=== PATIENT | male | born 1980 | race Caucasian/White ===

== ENCOUNTER 2016-05-30 17:05 | Emergency (ER) | payer MEDICAID ==
[~2016-05-30] VITALS: Ht 170.2 cm; Wt 78.5 kg
[~2016-05-30 17:05] MED LIST: DOCU-144 PO; HYDR-3498 PO; IBUP-1542 PO; MECL25TA2 PO; ONDA4TAB35 PO; TAMS-14 PO
[2016-05-30 17:19] VITALS: Ht 170.2 cm; Wt 78.5 kg
[2016-05-30] MEDS ORDERED: HYD25 PO (20:16)
--- NOTE | 2016-05-30 20:18 | ERD ---
ER Documentation Chief Complaint Date/Time DATE: 05/30/16 TIME: 20:17 Chief Complaint HEADACHE & HTN X6 DAYS. HPI Very pleasant 36-year-old male. senior internet sales consultant use. The patient describes approximately 6 days of elevated blood pressure and mild headache. The headache is mild, bitemporal and dull, gradual in onset and usually associated with elevated blood pressure. He has never been diagnosed with blood pressure before but he has had multiple readings greater than 150 systolic. He does have family history of elevated blood pressure. No fevers, chills, chest pain, no morning headaches. ROS All systems reviewed and are negative except as per history of present illness. Medications Home Meds Active Scripts Hydrochlorothiazide* (Hydrochlorothiazide*) 25 Mg Tab, 25 MG PO DAILY, #30 TAB Prov:MIN BOWLING MD 05/30/16 Allergies Allergies: Coded Allergies: No Known Drug Allergies (Verified Allergy, Unknown, 05/30/16) PMhx/Soc Medical and Surgical Hx: pt denies Medical Hx History of Surgery: Yes (kidney stone removal) Anesthesia Reaction: No Hx Neurological Disorder: No Hx Respiratory Disorders: No Hx Cardiac Disorders: No Hx Psychiatric Problems: No Hx Miscellaneous Medical Probl: No (kidney stone removal) Hx Alcohol Use: Yes ("sometimes") Hx Substance Use: No Hx Tobacco Use: No Smoking Status: Never smoker FmHx Family History: No diabetes Physical Exam Vitals Vital Signs Date Time Temp Pulse Resp B/P Pulse Ox O2 Delivery O2 Flow Rate FiO2 05/30/16 19:44 71 16 158/94 98 Room Air 05/30/16 17:19 99.1 77 16 176/105 99 Physical Exam General: Well developed, well nourished, no acute distress Head: Normocephalic, atraumatic. Eyes: Pupils equally reactive, EOM intact ENT: Moist mucous membranes Neck: Supple, no lymphadenopathy Respiratory: Lungs clear bilaterally, no distress Cardiovascular: RRR, no murmurs, rubs, or gallops Abdominal: Soft, non-tender, non-distended, no peritoneal signs : Deferred MSK: No edema, no unilateral swelling, 5/5 strength Neurologic: Alert and oriented, moving all extremities, normal speech, no focal weakness, no cerebellar signs Skin: No rash Psych: Normal mood Procedures/MDM Patient's blood pressure was elevated (>120/80) but appears stable without evidence of hypertensive emergency or urgency. The patient was counseled about the risks of hypertension and urged to pursue outpatient monitoring and therapy within a week with their primary care physician. The patient's headache is unlikely related to serious etiology. The patient does not exhibit any clinical signs or symptoms, and has no risk factors to suggest headache etiology such as subarachnoid hemorrhage, acute vertebral or carotid dissection, intracranial mass, epidural, subdural hematoma, dural venous sinus thrombosis, giant cell arteritis, or pseudotumor cerebri. I believe the patient's headache is likely secondary to his hypertension. He has no red flags that would be concerning for increased intracranial pressure. The patient does not require CT imaging at this time. He is otherwise extremely well-appearing in the emergency department. Initiation of antihypertensive medication would be appropriate in this patient. I strongly urged and recommended outpatient primary care follow-up, referral information provided to primary care clinics. We discussed follow up with the patient's primary care doctor within 24 to 48 hours as needed. We also discussed return to the emergency room for worsening symptoms or worsening condition. Outpatient referral: Primary care clinics Discharge Medications: Hydrochlorothiazide 25 mg once daily Departure Diagnosis: Primary Impression: Essential hypertension Additional Impression: Asymptomatic hypertension Condition: Stable Patient Instructions: Hypertension, New (Begin Treatment) Referrals: [facility] Usted se bradford hecho un examen mdico de control que le indica que no est en eusebio condicin que requiera tratamiento urgente en el Departamento de Emergencia. Un estudio ms profundo y el tratamiento de dixon condicin pueden esperar sin ningn riesgo hasta que usted sea atendida/o en el consultorio de dixon mdico o eusebio cl chad. Es responsabilidad suya arreglar eusebio mihir para el seguimiento del janak. MANEJO DE CONDICIONES NO URGENTES EN EL FUTURO 1) Si usted tiene un mdico de atencin primaria: Usted debera llamar a dixon mdico de atencin primaria antes de venir al departamento de emergencia. Despus de las horas de consultorio, dixon doctor o dixon asociado/a est disponible por telfono. El mdico o enfermero de marva en el servicio telefnico puede asesorarle por zainab medio para atender el problema, o janak contrario se puede programar eusebio mihir. 2) Si usted no tiene un mdico de atencin primaria: Llame al mdico o clnica de referencia que aparece abajo fabiana las horas de consultorio para hacer eusebio mihir para que le vean. CLINICAS: [facility] [phone] [facility] [phone] [facility] [phone] [place] [id number] [phone] [place] [id number] [phone] [facility]. [phone] [address] [facility]. [facility] () Usted se bradford hecho un examen mdico de control que le indica que no est en euseboi condicin que requiera tratamiento urgente en el Departamento de Emergencia. Un estudio ms profundo y el tratamiento de dixon condicin pueden esperar sin ningn riesgo hasta que usted sea atendida/o en el consultorio de dixon mdico o eusebio cl chad. Es responsabilidad suya arreglar eusebio mihir para el seguimiento del janak. MANEJO DE CONDICIONES NO URGENTES EN EL FUTURO 1) Si usted tiene un mdico de atencin primaria: Usted debera llamar a dixon mdico de atencin primaria antes de venir al departamento de emergencia. Despus de las horas de consultorio, dixon doctor o dixon asociado/a est disponible por telfono. El mdico o enfermero de marva en el servicio telefnico puede asesorarle por zainab medio para atender el problema, o janak contrario se puede programar eusebio mihir. 2) Si usted no tiene un mdico de atencin primaria: Llame al mdico o condado institucions de referencia que aparece abajo fabiana las horas de consultorio para hacer eusebio mihir para que le vean. SI USTED NO PUEDE PAGAR PARA GUILEHRME UN MEDICO puede ir a: [facility] [address] [place] [address] [facility] [address] [place] [address] [facility] [address] [place] [address] [facility] [address] [place], [place] [id number] Additional Instructions: Llame al doctor nombrado abajo (Referral Sources) MAANA y yoselin eusebio MIHIR PARA DENTRO DE EUSEBIO SEMANA. Dgale a la secretaria que nosotros le instruimos hacer esta mihir.Avise o llame si dixon condicin se empeora antes de la mihir. MIN BOWLING MD May 30, 2016 20:18
[2016-05-30 20:25] VITALS: BP 171/98; PULSE 66; RESP 16; TEMP 98.3
== END 2016-05-30 20:21 | disposition home or self-care (01) ==
LOC: MERGE 17:05 → FTE 17:05
DX: I10 Essential (primary) hypertension (principal)
CPT/HCPCS: 99283

== ENCOUNTER 2016-06-01 18:29 | Emergency (ER) | payer MEDICAID ==
[~2016-06-01] VITALS: Ht 172.7 cm; Wt 78.5 kg
[~2016-06-01 18:29] MED LIST changes: +HYD25 PO
[2016-06-01 18:58] VITALS: Ht 172.7 cm; Wt 78.5 kg
[2016-06-01] MEDS ORDERED: NITROGLYCERIN 2% 1 GM OINT PKT TD STA (22:07)
[2016-06-01] MEDS ORDERED: ASPIRIN 325 MG TAB PO STA (22:07)
[2016-06-01 22:25] LABS: ADD SCAN DIFF NO
[2016-06-01 22:28] LABS: BASOPHIL # 0.1 10^3/ul (0.0-0.1); BASOPHILS % 0.8 % (0.0-2.0); EOSINOPHILS # 0.3 10^3/ul (0.0-0.5); EOSINOPHILS % 3.4 % (0.0-7.0); HEMATOCRIT 53.8 % (42.0-52.0); HEMOGLOBIN 18.1 g/dl (14.0-18.0); LYMPHOCYTES # 2.9 10^3/ul (0.8-2.9); LYMPHOCYTES % 37.7 % (15.0-51.0); MEAN CORPUSCULAR HEMOGLOBIN 26.5 pg (29.0-33.0); MEAN CORPUSCULAR HGB CONC 33.6 g/dl (32.0-37.0); MEAN CORPUSCULAR VOLUME 78.9 fl (82.0-101.0); MEAN PLATELET VOLUME 9.5 fl (7.4-10.4); MONOCYTE # 0.9 10^3/ul (0.3-0.9); MONOCYTES % 11.6 % (0.0-11.0); NEUTROPHIL # 3.5 10^3/ul (1.6-7.5); NEUTROPHILS % 46.2 % (39.0-77.0); PLATELET COUNT 300 10^3/UL (140-415); RED BLOOD COUNT 6.82 10^6/ul (4.70-6.10); RED CELL DISTRIBUTION WIDTH 13.7 % (11.5-14.5); WHITE BLOOD COUNT 7.7 10^3/ul (4.8-10.8)
[2016-06-01] MEDS ORDERED: hydrALAzine 20 MG INJ IV ONE (22:30)
[2016-06-01 22:44] LABS: CHLORIDE 94 mmol/L (97-110)
[2016-06-01 22:45] LABS: INR 0.9; PROTIME 12.1 Sec (12.2-14.2); PT RATIO 0.9
[2016-06-01 22:45] LABS: POTASSIUM 3.9 mmol/L (3.5-5.1); SODIUM 139 mmol/L (135-144)
[2016-06-01 22:46] LABS: PARTIAL THROMBOPLASTIN TIME 32.7 Sec (25.0-35.0)
[2016-06-01 22:48] LABS: ANION GAP 20 (8-16); BLOOD UREA NITROGEN 17 mg/dl (7-20); CALCIUM 10.2 mg/dl (8.4-10.2); CARBON DIOXIDE 29 mmol/L (21-31); GLUCOSE 95 mg/dl (70-220)
--- NOTE | 2016-06-01 22:58 | RADRPT ---
PROCEDURE: XR Chest. CLINICAL INDICATION: Shortness of breath. Chest pain. TECHNIQUE: Single frontal chest x-ray. COMPARISON: Chest radiograph . FINDINGS: The cardiomediastinal silhouette is unremarkable. No pneumothorax, pleural effusion or consolidation is seen. No acute osseous abnormality is noted. IMPRESSION: 1. No acute cardiopulmonary abnormality. RPTAT: HFN .Nancy Telles MD, Date Time Electronically viewed and signed by .Nancy Telles MD, on 06/01/2016 22:58 .N/
[2016-06-01 23:02] LABS: TROPONIN-I < 0.012 ng/ml (0.00-0.12)
[2016-06-01] MEDS ORDERED: ONDANSETRON 4 MG INJ IV STA (23:08)
[2016-06-01] MEDS ORDERED: morphine 4 MG/ML VIAL IV STA (23:08)
--- NOTE | 2016-06-02 00:50 | ERA ---
ER Documentation Chief Complaint Date/Time DATE: 06/02/16 TIME: 00:48 Chief Complaint chest pain 30 minutes ago ,hypertension w/headache today HPI This is a 36-year-old gentleman with chest pain 30 minutes ago that was pressure -like, substernal, non-positional and nonexertional with no exacerbating or alleviating factors. Patient noticed blood pressure was severely elevated as well. Pain is mild to moderate intensity with no radiations. No shortness of breath. No diaphoresis. Did have mild headache that is since resolved. No other current complaints. Reviewing EMR, patient was here 3 days ago for similar complaints. ROS All systems reviewed and are negative except as per history of present illness. Medications Home Meds Active Scripts Hydrochlorothiazide* (Hydrochlorothiazide*) 25 Mg Tab, 25 MG PO DAILY, #30 TAB Prov:MIN BOWLING MD 05/30/16 Allergies Allergies: Coded Allergies: No Known Drug Allergies (Verified Allergy, Unknown, 06/01/16) PMhx/Soc History of Surgery: Yes (gallstones removed) Anesthesia Reaction: No Hx Neurological Disorder: No Hx Respiratory Disorders: No Hx Cardiac Disorders: Yes (HTN) Hx Psychiatric Problems: No Hx Miscellaneous Medical Probl: No Hx Alcohol Use: No Hx Substance Use: No Hx Tobacco Use: No Smoking Status: Never smoker Physical Exam Vitals Vital Signs Date Time Temp Pulse Resp B/P Pulse Ox O2 Delivery O2 Flow Rate FiO2 06/01/16 23:00 89 20 133/88 99 Room Air 06/01/16 22:00 2 06/01/16 22:00 98.1 76 16 168/99 99 Room Air 06/01/16 18:58 97.8 113 20 180/103 100 Physical Exam Const: [] Head: Atraumatic Eyes: Normal Conjunctiva ENT: Normal External Ears, Nose and Mouth. Neck: Full range of motion..~ No meningismus. Resp: Clear to auscultation bilaterally Cardio: Regular rate and rhythm, no murmurs Abd: Soft, non tender, non distended. Normal bowel sounds Skin: No petechiae or rashes Back: No midline or flank tenderness Ext: No cyanosis, or edema Neur: Awake and alert Psych: Normal Mood and Affect Result Diagram: 06/01/160 06/01/16 2210 Results 24 hrs Laboratory Tests Test 06/01/16 21:25 06/01/16 22:10 Prothrombin Time 12.1Sec Prothrombin Time Ratio 0.9 INR International Normalized Ratio 0.90 Activated Partial Thromboplast Time 32.7Sec White Blood Count 7.710^3/ul Red Blood Count 6.8210^6/ul Hemoglobin 18.1g/dl Hematocrit 53.8% Mean Corpuscular Volume 78.9fl Mean Corpuscular Hemoglobin 26.5pg Mean Corpuscular Hemoglobin Concent 33.6g/dl Red Cell Distribution Width 13.7% Platelet Count 59494^3/UL Mean Platelet Volume 9.5fl Neutrophils % 46.2% Lymphocytes % 37.7% Monocytes % 11.6% Eosinophils % 3.4% Basophils % 0.8% Nucleated Red Blood Cells % 0.0/100WBC Neutrophils # 3.510^3/ul Lymphocytes # 2.910^3/ul Monocytes # 0.910^3/ul Eosinophils # 0.310^3/ul Basophils # 0.110^3/ul Nucleated Red Blood Cells # 0.010^3/ul Sodium Level 139mmol/L Potassium Level 3.9mmol/L Chloride Level 94mmol/L Carbon Dioxide Level 29mmol/L Anion Gap 20 Blood Urea Nitrogen 17mg/dl Creatinine 0.80mg/dl Glucose Level 95mg/dl Calcium Level 10.2mg/dl Troponin I < 0.012ng/ml Current Medications Medications (Trade) Dose Ordered Sig/Berhane Route PRN Reason Start Time Stop Time Status Last Admin Dose Admin Aspirin (Aspirin) 325 mg ONCE STAT PO 06/01/16 22:07 06/01/16 22:10 DC 06/01/16 22:16 Nitroglycerin (Nitroglycerin 2% Oint) 1 inch ONCE STAT TD 06/01/16 22:07 06/01/16 22:10 DC 06/01/16 22:16 Hydralazine HCl (Apresoline) 20 mg ONCE ONCE IV 06/01/16 22:30 06/01/16 22:31 DC Morphine Sulfate (morphine) 4 mg ONCE STAT IV 06/01/16 23:08 06/01/16 23:09 DC 06/01/16 23:34 Ondansetron HCl (Zofran Inj) 4 mg ONCE STAT IV 06/01/16 23:08 06/01/16 23:09 DC 06/01/16 23:34 Procedures/MDM EKG: Rate/Rhythm: Normal Sinus Rhythm QRS, ST, T-waves: No changes consistent w/ acute ischemia Impression: No evidence of ischemia or arrhythmia Chest X-ray 1V Interpreted by me: Soft Tissue: No acute abnormalities Bones: No acute abnormalities Mediastinum/Cardiac Silhouette/Lungs: No acute abnormalities Patient's symptoms are concerning for cardiac cause will require inpatient workup and continuous monitoring. Further w/u for ischemia, arrhythmia, PE or dissection will be deferred to the inpatient team. Blood pressure treated with hydralazine here in the emergency department. Good response. Accepting Care Team: Current data and ongoing care discussed. Time: T 12:45 PM n Primary Provider: Hospitalist Consulting: [CARLOS] Outstanding Data: none Critical Care: Time: 45 minutes Treatments/Evaluations: Close monitoring and treatment of unstable vital signs, cardiorespiratory, and neurologic status, while maintaining tight balance of fluid, respiratory, and cardiac interventions. Departure Diagnosis: Primary Impression: Chest pain Qualified Code: I20.9 - Chest pain due to myocardial ischemia, unspecified ischemic chest pain type Condition: Serious MARYCARMEN LUEVANO Jun 02, 2016 00:49
[2016-06-02 04:58] LABS: CREATINE KINASE 146 IU/L (23-200)
[2016-06-02 05:00] VITALS: TEMP 97.9
[2016-06-02 05:18] LABS: TROPONIN-I < 0.012 ng/ml (0.00-0.12)
--- NOTE | 2016-06-02 07:33 | PDOCDIS ---
Discharge Instructions CONDITION Patient Condition: Stable HOME CARE INSTRUCTIONS: Diet Instructions: Low Fat /Cholesterol ACTIVITY: Activity Restrictions: Slowly Increase Activity FOLLOW UP/APPOINTMENTS Appointments Follow-up with primary care Doctor OTHER ORDERS: Other Orders: Call 911 and go to the nearest ER if you have chest pain, shortness of breath, palpitations, lightheadedness, fever/chills or severe pain of any kind. . MARYCARMEN BENAVIDEZ MD Jun 02, 2016 07:33
[2016-06-02] MEDS ORDERED: NITR0.3T6 SL (07:36)
[2016-06-02] MEDS ORDERED: HYD25 PO (07:36)
[2016-06-02] MEDS ORDERED: SOD CHLORIDE 0.9% 500 ML IV ONE (08:00)
[2016-06-02 08:30] VITALS: BP 116/77; PULSE 81; RESP 18
== END 2016-06-02 08:34 | disposition home or self-care (01) ==
LOC: E/R 18:29 → MERGE 18:29 → E/R 06-02 08:34
DX: I20.9 Angina pectoris, unspecified (principal); I10 Essential (primary) hypertension; R40.2142 Coma scale, eyes open, spontaneous, at arrival to emergency department; R40.2362 Coma scale, best motor response, obeys commands, at arrival to emergency department; R40.2252 Coma scale, best verbal response, oriented, at arrival to emergency department
CPT/HCPCS: 36415; 71010; 80048; 82550; 82553; 84484; 85025; 85610; 85730; 93005; 96374; 96375; J2270; J2405; J7040; Z7502; Z7610

== ENCOUNTER 2016-06-06 15:32 | Emergency (ER) | payer MEDICAID ==
[~2016-06-06] VITALS: Ht 175.3 cm; Wt 75.5 kg
[~2016-06-06 15:32] MED LIST changes: +NITR0.3T6 SL
[2016-06-06 15:34] VITALS: Ht 175.3 cm; Wt 75.5 kg
[2016-06-06] MEDS ORDERED: ACETAMINOPHEN 500 MG TAB PO STA (16:15)
--- NOTE | 2016-06-06 18:08 | ERD ---
ER Documentation Chief Complaint Date/Time DATE: 06/06/16 TIME: 18:06 Chief Complaint fever , cough , headcahe , mid back pain HPI This a 36-year-old male who presents the emergency department today complaining of fever, cough, headache and mid back pain that started yesterday. Patient states he thinks his blood pressure is elevated. States he has some dizziness. States is not taking any medication for his symptoms. Denies any nausea vomiting, blurred vision. ROS All systems reviewed and are negative except as per history of present illness. Medications Home Meds Active Scripts Guaifenesin-Dextromethorphan* (Robitussin* DM) 100MG/10MG/5ML Syrup, 10 ML PO Q6H for 5 Days, ML Prov:JORGE STONE PA-C 06/06/16 Acetaminophen* (Tylophen*) 500 Mg Capsule, 1 CAP PO Q6H Y for PAIN AND OR ELEVATED TEMP, #30 CAP Prov:JORGE STONE PA-C 06/06/16 Naproxen* (Naprosyn*) 500 Mg Tablet, 500 MG PO BID Y for PAIN AND/OR INFLAMMATION, #30 TAB Prov:JORGE STONE PA-C 06/06/16 Nitroglycerin (Nitroglycerin) 0.3 Mg Tab.subl, 0.4 MG SL [id number] for chest pain , #20 Prov:MARYCARMEN BENAVIDEZ MD 06/02/16 Hydrochlorothiazide* (Hydrochlorothiazide*) 25 Mg Tab, 25 MG PO TID for 30 Days , TAB 1 Refill Prov:MARYCARMEN BENAVIDEZ MD 06/02/16 Ondansetron Hcl* (Zofran* ODT) 4 mg -ODT Tab.disper, 4 MG PO Q6 Y for NAUSEA AND /OR VOMITING, #10 TAB Prov:VARGHESE WARD PA-C 07/19/15 Meclizine Hcl* (Antivert*) 25 Mg Tablet, 25 MG PO Q6H Y for DIZZINESS, #20 TAB Prov:VARGHESE WARD PA-C 07/19/15 Ibuprofen* (Motrin*) 600 Mg Tab, 600 MG PO Q6H Y for PAIN AND OR ELEVATED TEMP, #30 TAB Prov:VARGHESE WARD-C 07/19/15 Tamsulosin Hcl* (Flomax*) 0.4 Mg Cap.er.24h, 0.4 MG PO BID, #20 CAP Prov:NAVEED MARTÍNEZ 05/19/15 Docusate Sodium* (Colace*) 100 Mg Capsule, 100 MG PO TID, #30 CAP Prov:NAVEED MARTÍNEZ 05/19/15 Hydrocodone Bit-Acetaminophen* ([place]*) 5-325 Mg Tab, 1 TAB PO Q6 Y for PAIN, # 20 TAB Prov:NAVEED MARTÍNEZ 05/19/15 Allergies Allergies: Coded Allergies: No Known Drug Allergies (Verified Allergy, Unknown, 06/02/16) PMhx/Soc History of Surgery: No Anesthesia Reaction: No Hx Neurological Disorder: No Hx Respiratory Disorders: No Hx Cardiac Disorders: No Hx Psychiatric Problems: No Hx Miscellaneous Medical Probl: No Hx Alcohol Use: No Hx Substance Use: No Hx Tobacco Use: No Physical Exam Vitals Vital Signs Date Time Temp Pulse Resp B/P Pulse Ox O2 Delivery O2 Flow Rate FiO2 06/06/16 15:34 100.7 98 16 165/97 98 Physical Exam Const: No acute distress Head: Atraumatic Eyes: Normal Conjunctiva. PERRLA. EOM intact. ENT: Ears TMs normal. Nose no drainage. Throat no erythema no exudate. Neck: Full range of motion..~ No meningismus. Resp: Clear to auscultation bilaterally. No absent breath sounds. No wheezing. Cardio: Regular rate and rhythm, no murmurs Abd: Soft, non tender, non distended. Normal bowel sounds Skin: No petechiae or rashes Back: No midline or flank tenderness no CVA tenderness. Ext: No cyanosis, or edema. Upper extremity pulses bilaterally Neur: Awake and alert no focal neurologic deficits. No gait ataxia. Psych: Normal Mood and Affect Results 24 hrs Current Medications Medications (Trade) Dose Ordered Sig/Berhane Route PRN Reason Start Time Stop Time Status Last Admin Dose Admin Acetaminophen (Tylenol Tab) 500 mg ONCE STAT PO 06/06/16 16:15 06/06/16 16:16 DC 06/06/16 16:25 DIAGNOSTIC IMAGING REPORT Patient: NURIA WEINBERG : 1980 Age: 36 Sex: M MR #: [id number] DOS: 06/06/16 0000 Ordering MD: JORGE STONE PA-C Location: [facility] Room/Bed: PROCEDURE: XR, Chest. CLINICAL INDICATION: Cough. TECHNIQUE: AP chest COMPARISON: None available. FINDINGS: There is no acute infiltrate in the lungs. No pleural effusion. The heart is not enlarged. IMPRESSION: 1. Unremarkable chest x-ray. RPTAT: GG .Amandeep Sánchez MD, MD Date Time Electronically viewed and signed by .Amandeep Sánchez MD, MD on 06/06/2016 18:14 .Y/ CC: JORGE STONE PA-C Procedures/MDM This is a 36-year-old male who presents to the emergency department today with multiple complaints. Patient's physical exam is benign. He did have a temperature of 100.7 here in the emergency department. This is the patient's third visit to this emergency department in the past week. Patient was seen here on May 30, 2016 for headache and elevated blood pressure and was started on hydrochlorothiazide at that time. Patient returned on June 01, 2016 for chest pain. He had a full workup at that time with 2 negative troponins and negative chest x-ray and a negative EKG. Patient however had been attempted to be admitted to the hospital and patient was discharged by the hospitalist home. Patient denies any chest pain today on his visit. I discussed the patient with Dr. Wick he is recommended a repeat EKG and repeat chest x-ray EKG read and interpreted by Dr. Florez and Dr. Wick. Rate [address] elevation. No QT prolongation. Normal sinus rhythm. Low suspicion for acute [place], PE, pericarditis, pleural effusion Chest x-ray is unremarkable. There is no acute infiltrate in the lungs, no pleural effusion. Patient has no focal neurologic deficits. He has no gait ataxia. He has good pulses bilaterally in his upper extremities. Low suspicion for aortic dissection. I do not feel the patient requires a head CT scan at this time. Patient's blood pressure was mildly elevated at 165/97. Low suspicion for hypertensive emergency, hypertensive urgency. Patient symptoms at this time most consistent with influenza-like symptoms and hypertension. Do not feel the patient requires Tamiflu at this time. Patient was given Tylenol here in the emergency department. I will give him a prescription for Tylenol, Naprosyn for home as well as Robitussin for his cough. He was instructed to continue taking his antihypertensive and follow-up with his primary care doctor. At this time the patient is stable for discharge and outpatient management. Patient should follow up with their PCP in the next 1-2 days. They may return to the emergency department sooner for any persistent or worsening of symptoms. Patient understood and agreed with the plan. I discussed the patient with Dr. Wick and he is in agreement with the plan. Departure Diagnosis: Primary Impression: Multiple complaints Condition: JORGE Arzate PA-C Jun 06, 2016 18:08
--- NOTE | 2016-06-06 18:15 | RADRPT ---
PROCEDURE: XR, Chest. CLINICAL INDICATION: Cough. TECHNIQUE: AP chest COMPARISON: None available. FINDINGS: There is no acute infiltrate in the lungs. No pleural effusion. The heart is not enlarged. IMPRESSION: 1. Unremarkable chest x-ray. RPTAT: GG .Amandeep Sánchez MD, MD Date Time Electronically viewed and signed by .Amandeep Sánchez MD, MD on 06/06/2016 18:14 .Y/
[2016-06-06] MEDS ORDERED: UDROBDM PO (18:24)
[2016-06-06] MEDS ORDERED: ACET500C5 PO (18:24)
[2016-06-06] MEDS ORDERED: NAPR-260 PO (18:24)
[2016-06-06 18:53] VITALS: PULSE 78; RESP 18; TEMP 98.3
== END 2016-06-06 18:54 | disposition home or self-care (01) ==
LOC: FTE 15:32
DX: R50.9 Fever, unspecified (principal); R05 Cough; R51 Headache; M54.9 Dorsalgia, unspecified; R42 Dizziness and giddiness
CPT/HCPCS: 71010; 93005; Z7502; Z7610